=== PATIENT | male | born 1970 | race Hispanic/Latino ===

== ENCOUNTER → 2018-03-21 | Day surgery (SDC) | payer OTHER ==
[2018-03-18 09:28] LABS: BASOPHILS # (AUTO) 0.1 (0.0-0.1); BASOPHILS % 0.6 % (0.0-1.0); EOSINOPHILS # (AUTO) 0.4 (0.0-0.4); EOSINOPHILS % 5.1 % (0.0-6.0); HEMOGLOBIN 15.3 g/dL (14.0-18.0); LYMPHOCYTES # (AUTO) 2.3 (1.0-3.2); LYMPHOCYTES % 28.8 % (18.0-39.1); MEAN CORPUSCULAR HEMOGLOBIN 29.1 pg (28-32); MEAN CORPUSCULAR HGB CONC 33.3 g/dL (31-35); MEAN CORPUSCULAR VOLUME 87.5 fL (81-99); NEUTROPHILS % 51.5 % (38.7-80.0); PLATELET COUNT 192 x10e3/uL (140-360); RED BLOOD COUNT 5.26 x10e6/uL (4.3-5.7)
[2018-03-18 10:37] LABS: ANION GAP 12.9 mmol/L (8-16); BLOOD UREA NITROGEN 15 mg/dL (7-26); BUN/CREATININE RATIO 15 (6-25); CARBON DIOXIDE 26 mmol/L (22-29); CHLORIDE 102 mmol/L (98-107); CREATININE, SERUM 1.01 mg/dL (0.72-1.25); EST GLOMERULAR FILTRATION RATE > 60 ML/MIN (60-); GLUCOSE 90 mg/dL (74-118); POTASSIUM 3.9 mmol/L (3.5-5.1); SODIUM 137 mmol/L (136-145)
[~2018-03-21] MED LIST: BACITRACIN 50,000 UNIT VIAL ONE; BUPIVACAINE 0.25%/EPI 30ML SDV INJ ONE; BUPIVACAINE LIPOSOME/PF 266 MG/20 ML IJ ONE; CEFAZOLIN SOD 1 GM VIAL ONE; CEFAZOLIN SOD 1 GM/D5W 50ML 50 ML IV ONE; DEXAMETHASONE SOD PHOS INJ 4 MG/ML VIAL ONE; EPHEDRINE SULFATE INJ 50 MG/10 ML SYR ONE; FENTANYL CITRATE/PF 100MCG/2 ML INJ ONE; LIDOCAINE HCL 2% JELLY 5 ML TUBE ONE; LIDOCAINE HCL 2% LOCAL INJ 5 ML SDV VIAL INJ ONE; MIDAZOLAM HCL 2 MG/2 ML VIAL ONE; ONDANSETRON HCL INJ 2MG/ML 2ML 2 MG/ML VIAL ONE; PROPOFOL IV EMULSION 10 MG/ML 20 ML VIAL ONE; SEVOFLURANE INHAL SOLN 250 ML PEN BTL ONE
--- OUTSIDE RECORDS SUMMARY | 2018-03-21 05:37 | XMS REPORT | Summary of Care ---
Author Author [facility] Organization [facility] Address Unknown Phone Unavailable Encounter CHELSEA Lopez(FIN) [id number] Date(s): 03/06/17 - 03/06/17 [facility] [address], [address] [place] [address]- [phone] Attending Physician: Kyra Luong MD Vital Signs No data available for this section Problem List Condition Effective Dates Status Health Status Informant Blurring of visual Active image1 Chronic gastritis2 Active Low serum vitamin Active D(Confirmed) Dysuria3 Active Gastroesophageal Active reflux disease(Confirmed)4 Hyperlipidemia(Confi Active rmed)5 Glucose intolerance Active (impaired glucose tolerance)(Confirmed ) Impotence of organic Active origin6 Low back pain7 Active Hiatal Active hernia(Confirmed) Annual physical Active exam(Confirmed) Diabetes mellitus Active screening(Confirmed) Decreased Active vision(Confirmed) 1Data migrated from [employer] on 07/24/14. 2Data migrated from [employer] on 07/24/14. 3Data migrated from [employer] on 07/24/14. 4Data migrated from [employer] on 07/24/14. 5Data migrated from [employer] on 07/24/14. 6Data migrated from [employer] on 07/24/14. 7Data migrated from [employer] on 07/24/14. Allergies, Adverse Reactions, Alerts Substance Reaction Severity Status NKDA1 Active 1Data migrated from [employer] on 04/19/15. Originally documented as NKA. Medications No data available for this section Results No data available for this section Immunizations Given and Recorded Vaccine Date Status Refusal Reason Hx influenza vaccine-unspecified1 01/26/08 Given 1Result Comment: historical. Migrated from OBS ; Data migrated from [employer] on 03/29/2015. Procedures No data available for this section Social History Social History Type Response Substance Abuse Use: None. IV drug use: No. Drug use interferes with work/home: No. Ready to change: No. Household substance abuse concerns: No. Employment/School Status: Employed.1, 2 Alcohol Current, Type Beer. Frequency: 1-2 times per year. Smoking Status Never smoker; Ready to change: No; Concerns about tobacco use in household: No; Exposure to Tobacco Smoke None; Cigarette Smoking Last 365 Days No; Reg Smoking Cessation Counseling No entered on: 11/01/16 1*[employer] in a [employer] shop Assessment and Plan No data available for this section
--- OUTSIDE RECORDS SUMMARY | 2018-03-21 05:37 | XMS REPORT | Continuity of Care Document ---
Author Author [facility] Interface Address Unknown Phone Unavailable Problems Problem Status Onset Date Classification Date Reported Comments Source Hernia, umbilical 07/26/2017 07/29/2017 [facility] Encounter for medical screening examination 07/26/2017 07/29/2017 [facility] ABD PAIN Active 06/25/2016 [facility] Blurring of visual image<sup>1</sup> Active Problem 07/29/2017 Data migrated from [employer] on 07/24/14. [facility] Chronic gastritis<sup>2</sup> Active Problem 07/29/2017 Data migrated from [employer] on 07/24/14. [facility] Low serum vitamin D Active Problem 07/29/2017 [facility] Dysuria<sup>3</sup> Active Problem 07/29/2017 Data migrated from [employer] on 07/24/14. [facility] Gastroesophageal reflux disease<sup>4</sup> Active Problem 07/29/2017 Data migrated from [employer] on 07/24/14. [facility] Hyperlipidemia<sup>5</sup> Active Problem 07/29/2017 Data migrated from [employer] on 07/24/14. [facility] Glucose intolerance (<span ID="[id number]">Confirmed</span>) Active Problem 07/29/2017 [facility] Impotence of organic origin<sup>6</sup> Active Problem 07/29/2017 Data migrated from [employer] on 07/24/14. [facility] Low back pain<sup>7</sup> Active Problem 07/29/2017 Data migrated from [employer] on 07/24/14. [facility] Hiatal hernia Active Problem 07/29/2017 [facility] Diabetes mellitus screening Active Problem 07/29/2017 [facility] Decreased vision Active Problem 07/29/2017 [facility] Medications Medication Details Route Status Patient Instructions Ordering Provider Order Date Source Allergies, Adverse Reactions, Alerts Substance Category Reaction Severity Reaction type Status Date Reported Comments Source Immunizations Immunization Date Given Site Status Last Updated Comments Source Hx influenza vaccine-unspecified<sup>1</sup> 01/26/2008 completed GE Result Comment: historical. Migrated from OBS ; Data migrated from [employer] on 03/29/2015. [facility] Results Order Name Results Value Reference Range Date Interpretation Comments Source Vital Signs Vital Sign Value Date Comments Source Weight 80 07/26/2017 [facility] BMI Calculated 28.47 07/26/2017 [facility] Temperature Oral (F) 98.2 F 07/26/2017 [facility] Systolic (mm Hg) 112 07/26/2017 [facility] Diastolic (mm Hg) 70 07/26/2017 [facility] Heart Rate 65 07/26/2017 [facility] Respitory Rate 18 07/26/2017 [facility] Height 167.64 cm 07/26/2017 [facility] Encounters Location Location Details Encounter Type Encounter Number Reason For Visit Attending Provider ADM Date DC Date Status Source Outpatient [id number] KYRA ROBERT 05/25/2016 Active [facility] Outpatient [id number] KYRA ROBERT 05/30/2016 Active [facility] Outpatient [id number] KYRA ROBERT 09/26/2016 Active [facility] Outpatient [id number] KYRA ROBERT 11/01/2016 Active [facility] Outpatient [id number] KYRA ROBERT 03/06/2017 Active [facility] Primary Care [facility] Pre-Reg [id number] Kyra Boyle 03/06/2017 03/06/[address] [facility] Emergency [id number] Baldemar Huerta 07/26/2017 07/26/2017 [facility] Procedures Procedure Code Date Perfomer Comments Source
--- OUTSIDE RECORDS SUMMARY | 2018-03-21 05:37 | XMS REPORT | Summary of Care ---
Author Author [facility] Organization [facility] Address Unknown Phone Unavailable Encounter HQ Jessica(FIN) [id number] Date(s): 07/26/17 - 07/26/17 [facility] [address] [place] [address]- [phone] Encounter Diagnosis Hernia, umbilical (Discharge Diagnosis) - 07/26/17 Encounter for medical screening examination (Discharge Diagnosis) - 07/26/17 Discharge Disposition: Non-Emergent Attending Physician: Baldemar Huerta MD Vital Signs Most recent to 1 oldest [Reference Range]: Height 167.64 cm (07/26/17 11:53 AM) Temperature Oral 98.2 DegF [96.4-99.1 DegF] (07/26/17 11:53 AM) Blood Pressure 112/70 mmHg [90-140/60-90 mmHg] (07/26/17 11:53 AM) Respiratory Rate 18 BRMIN [14-20 BRMIN] (07/26/17 11:53 AM) Peripheral Pulse 65 bpm Rate [60-100 bpm] (07/26/17 11:53 AM) Weight 80 kg (07/26/17 11:53 AM) Body Mass Index 28.47 m2 (07/26/17 11:53 AM) Problem List Condition Effective Dates Status Health [...] Decreased Active vision(Confirmed) 1Data migrated from [employer] on 07/24/14. 2Data migrated from [employer] on 07/24/14. 3Data migrated from [employer] [...] Reg Smoking Cessation Counseling No entered on: 07/26/17 1*[employer] shop Assessment and Plan No data available for this section
--- OUTSIDE RECORDS SUMMARY | 2018-03-21 05:37 | XMS REPORT | Summary of Care ---
Author Author [facility] Organization [facility] Address Unknown Phone Unavailable Encounter CHELSEA Lopez(FIN) [id number] Date(s): 03/06/17 - 03/06/17 [facility] [address], [address] [place] [address]- [phone] Attending Physician: Kyra Luong MD Vital Signs [...] entered on: 11/01/16 1*[employer] Assessment and Plan No data available for this section
--- NOTE | 2018-03-21 09:58 | Operative Report ---
DATE OF PROCEDURE: March 21, 2018 PREOPERATIVE DIAGNOSIS: Periumbilical ventral hernia. POSTOPERATIVE DIAGNOSIS: Periumbilical ventral hernia. PROCEDURE PERFORMED: Repair of periumbilical ventral hernia with PROCEED ventral patch, small size. ANESTHESIA: General. ESTIMATED BLOOD LOSS: Minimal. DRAINS: None. COMPLICATIONS: None. INDICATIONS AND FINDINGS: The patient is a 47-year-old male who was doing lifting at work and developed painful bulge around the periumbilical area. INTRAOPERATIVE FINDINGS: Periumbilical ventral hernia with herniation of properitoneal fat. The PROCEED ventral patch mesh was placed through the fascial defect in the intra-abdominal cavity laying flat against the abdominal wall. DESCRIPTION OF THE PROCEDURE: With the patient lying on the operative table in the supine position, after administration of general anesthesia, he was prepped and draped for repair of periumbilical ventral hernia. An incision was made in a semicircular fashion inferior to the umbilicus and the dissection was carried down through the skin, subcutaneous tissues until the hernia was identified. The hernia was dissected free from the surrounding tissues and from the umbilical skin and surrounding tissues, and then the excess fat was excised. The intra-abdominal cavity was entered and then the mesh was deployed with the mesh laying in intra-abdominal location against the abdominal wall. The mesh was secured to the fascia with a series of interrupted 2-0 Ethibond sutures. The straps were then cut after they had been secured to the fascia with 2-0 silk. After we did that, we loosely closed the fascia over the hernia mesh and then irrigated the wound, infiltrated the fascia with 0.25% Marcaine with epinephrine and then closed the wounds in 2 layers using 3-0 Vicryl for the soft tissues, and the skin was closed with 3-0 silk. Sterile dressing was applied. The patient tolerated the procedure well, was taken to recovery room in stable condition. Job#: [id number]
[2018-03-21 10:30] VITALS: BP 107/73
== END | disposition home or self-care (01) ==
LOC: OR 05:35
PROVIDERS: ATTEND Surgery
DX: K43.9 Ventral hernia without obstruction or gangrene (principal); K21.9 Gastro-esophageal reflux disease without esophagitis; K44.9 Diaphragmatic hernia without obstruction or gangrene; Z01.810 Encounter for preprocedural cardiovascular examination; Z01.812 Encounter for preprocedural laboratory examination
CPT/HCPCS: 36415; 49560; 49568; 80048; 85025; 93005; C1781; J0690 ×2; J1100; J2001 ×2; J2250; J2405; J2704